=== PATIENT | male | born 1940 | race Hispanic/Latino ===

== ENCOUNTER → 2018-11-15 | Outpatient (CLI) | payer OTHER ==
[~2018-11-15] MED LIST: ALEN70TA10 PO; ASPI-555 PO; CLOP75TA14 PO; CYAN-52 PO; FENO160T16 PO; FINA5TAB41 PO; GENTLE SORB IRON PO; GLIP10TA9 PO; INSU100I21 SQ; LOSA100T58 PO; MACR100 PO; METF-446 PO; METO-408 PO; SIMV40TA5 PO; SULF-168 PO; TAMS0.4C32 PO; TYL3B PO
== END | disposition home or self-care (01) ==
LOC: SHCH 13:53
PROVIDERS: ATTEND Internal Medicine Cardiovascular Disease
DX: I08.0 Rheumatic disorders of both mitral and aortic valves (principal)
CPT/HCPCS: 93306

== ENCOUNTER → 2018-12-11 | Outpatient (CLI) | payer OTHER ==
[~2018-12-11] VITALS: Ht 180.3 cm; Wt 84.8 kg
[~2018-12-11] MED LIST changes: +REGADENOSON 0.4 MG/5 ML PF SYG IVP SCH; +SIMV-46 PO; -SIMV40TA5 PO
== END | disposition home or self-care (01) ==
LOC: SHCH 08:00
PROVIDERS: ATTEND Internal Medicine Cardiovascular Disease
DX: I25.10 Atherosclerotic heart disease of native coronary artery without angina pectoris (principal)
CPT/HCPCS: 78452; 93017; 96374; A9500 ×2; J2785

== ENCOUNTER → 2020-06-11 | Outpatient (CLI) | payer OTHER ==
[~2020-06-11] MED LIST changes: -ALEN70TA10 PO; +ALEN70TA80 PO; -ASPI-555 PO; +ASPI-556 PO; -REGADENOSON 0.4 MG/5 ML PF SYG IVP SCH
== END | disposition home or self-care (01) ==
LOC: SHCH 12:52
PROVIDERS: ATTEND Internal Medicine Cardiovascular Disease
DX: I65.23 Occlusion and stenosis of bilateral carotid arteries (principal); I25.10 Atherosclerotic heart disease of native coronary artery without angina pectoris
CPT/HCPCS: 93880

== ENCOUNTER → 2021-06-04 | Outpatient (CLI) | payer OTHER | END | disposition home or self-care (01) | LOC: SHCH 09:40 | PROVIDERS: ATTEND Internal Medicine Cardiovascular Disease | DX: I27.20 Pulmonary hypertension, unspecified (principal); R01.1 Cardiac murmur, unspecified | CPT/HCPCS: 93306 ==

== ENCOUNTER → 2021-07-12 | Outpatient (CLI) | payer OTHER ==
[~2021-07-12] MED LIST changes: +REGADENOSON 0.4 MG/5 ML PF SYG IVP SCH
== END | disposition home or self-care (01) ==
LOC: SHCH 07:44
PROVIDERS: ATTEND Internal Medicine Cardiovascular Disease
DX: I25.10 Atherosclerotic heart disease of native coronary artery without angina pectoris (principal); I10 Essential (primary) hypertension; Z95.1 Presence of aortocoronary bypass graft
CPT/HCPCS: 78452; 93017; 96374; A9500 ×2; J2785

== ENCOUNTER 2021-09-10 07:15 | Observation (INO) | payer OTHER ==
[2021-09-08 13:12] LABS: BASOPHILS % (AUTO) 0.9 % (0.0-5.0); HEMATOCRIT 32.2 % (42-54); LYMPHOCYTES % (AUTO) 21.7 % (21.0-51.0); MEAN CORPUSCULAR HEMOGLOBIN 27.3 pg (27.0-33.0); MEAN CORPUSCULAR HGB CONC 32.3 g/dL (32.0-36.0); MEAN CORPUSCULAR VOLUME 84.5 fL (79-99); MONOCYTES % (AUTO) 7.3 % (3.0-13.0); NEUTROPHILS % (AUTO) 67.8 % (40.0-77.0); PLATELET COUNT (AUTO) 244 K/uL (130-400); RED BLOOD CELL COUNT(AUTO) 3.81 MIL/uL (4.50-6.20); RED CELL DISTRIBUTION WIDTH 15.6 % (11.0-15.5); WHITE BLOOD COUNT (AUTO) 6.4 K/uL (4.8-10.8)
[2021-09-08 13:14] VITALS: BP 140/67
[2021-09-08 13:15] LABS: APPEARANCE,URINE CLEAR (CLEAR); BILIRUBIN,URINE SMALL (NEGATIVE); COLOR,URINE YELLOW (YELLOW); GLUCOSE, URINE (UA) NEGATIVE (NEGATIVE); KETONES,URINE 5 mg/dL (NEGATIVE); LEUKOCYTE ESTERASE ,URINE NEGATIVE (NEGATIVE); NITRATE,URINE NEGATIVE (NEGATIVE); OCCULT BLOOD,URINE NEGATIVE (NEGATIVE); PROTEIN,URINE NEGATIVE (NEGATIVE); UROBILINOGEN,URINE 0.2 mg/dL (0.2-1.0)
[2021-09-08 13:22] LABS: CREATININE 1.5 mg/dL (0.5-1.5); POTASSIUM 5.1 mmol/L (3.5-5.1)
[2021-09-10] VITALS (17 sets, daily range): BP systolic 105–181; BP diastolic 54–84
[~2021-09-10] VITALS: Ht 180.3 cm; Wt 83.9 kg
[~2021-09-10 07:15] MED LIST changes: +CALC-1209 PO; -GENTLE SORB IRON PO; -GLIP10TA9 PO; +HEPARIN 10,000 UNIT/10ML (1,000 UNIT/ML) VIAL ONE; +IOHEXOL 350 MG/ML 100ML INFUS..BTL IV ONE; +IOHEXOL-350 50ML VIAL IV ONE; +LIDOCAINE HCL 400MG/20ML VIAL ONE; +LINA5TAB PO; +LISI10TA24 PO; +LORA10TA7 PO; -LOSA100T58 PO; -MACR100 PO; +MEPERIDINE-PF 25 MG/ML SYG ONE; -METO-408 PO; +METO25TA6 PO; +MIDAZOLAM HCL 1 MG/ML 2ML VIAL ONE; +NITROGLYCERIN 50MG VIAL ONE; -REGADENOSON 0.4 MG/5 ML PF SYG IVP SCH; +ROSU40TA21 PO; -SIMV-46 PO; +SODIUM BICARB 50MEQ 50ML VIAL 50 ML ONE; -SULF-168 PO; -TYL3B PO; +iron PO
[2021-09-10] MEDS ORDERED: 0.9%NACL 1000ML 1,000 ML IV ONE (08:56)
[2021-09-10 11:07] LABS: INR 1.07 (0.85-1.15); PROTHROMBIN TIME 11.6 SEC (9.6-11.6)
[2021-09-10] MEDS ORDERED: MIDAZOLAM HCL 1 MG/ML 2ML VIAL ONE ×2 (11:07→11:30)
[2021-09-10] MEDS ORDERED: MEPERIDINE-PF 25 MG/ML SYG ONE (11:07)
[2021-09-10] MEDS ORDERED: MEPERIDINE-PF 50 MG/ML SYG ONE (11:30)
[2021-09-10] MEDS ORDERED: NITROGLYCERIN 4.1 GM SPRAY TL ONE (12:15)
[2021-09-10] MEDS ORDERED: DEXTROSE 50%-WATER 50 ML DISP.SYRIN IV PRN (12:30)
[2021-09-10] MEDS ORDERED: 0.9%NACL 1000ML 1,000 ML IV SCH (12:30)
[2021-09-10] MEDS ORDERED: GLUCAGON 1MG KIT 1 MG ML IM PRN (12:30)
[2021-09-10] MEDS ORDERED: MORPHINE 2 MG SYG IVP PRN (18:30)
[2021-09-10] MEDS ORDERED: CLONIDINE HCL 0.1 MG TABLET PO SCH (20:00)
[2021-09-10] MEDS: INSULIN HUMULIN R 100 UNIT/ML 3ML SQ SCH ×2 (20:21→20:23)
[2021-09-10] MEDS: CA 600MG+VIT D 400 UNIT TAB 1 TAB TABLET PO SCH ×2 (21:00→21:23)
[2021-09-10] MEDS ORDERED: ASPIRIN 81 MG EC TAB PO SCH (21:00)
[2021-09-10] MEDS ORDERED: ATORVASTATIN 40 MG TABLET PO SCH (21:00)
[2021-09-10] MEDS ORDERED: FAMOTIDINE 20MG TAB PO SCH (21:00)
[2021-09-10] MEDS: TAMSULOSIN HCL 0.4 MG CAP.ER.24H PO SCH (21:23)
[2021-09-10] MEDS: METOPROLOL TARTRATE 25 MG TAB PO SCH (21:23)
[2021-09-10] MEDS: NITROGLYCERIN 1GM OINT 1 INCH/1GM TD SCH (21:24)
[2021-09-11 03:58] VITALS: BP 120/65
[2021-09-11] MEDS: NITROGLYCERIN 1GM OINT 1 INCH/1GM TD SCH ×2 (04:52→11:39)
[2021-09-11] MEDS: INSULIN HUMULIN R 100 UNIT/ML 3ML SQ SCH ×3 (06:59→16:30)
[2021-09-11 08:00] VITALS: BP 147/76
[2021-09-11 08:31] LABS: HEMATOCRIT 32.4 % (42-54); MEAN CORPUSCULAR HEMOGLOBIN 27.4 pg (27.0-33.0); MEAN CORPUSCULAR HGB CONC 32.4 g/dL (32.0-36.0); MEAN CORPUSCULAR VOLUME 84.6 fL (79-99); RED BLOOD CELL COUNT(AUTO) 3.83 MIL/uL (4.50-6.20); RED CELL DISTRIBUTION WIDTH 15.8 % (11.0-15.5); WHITE BLOOD COUNT (AUTO) 6.9 K/uL (4.8-10.8)
[2021-09-11 08:48] LABS: CREATININE 1.3 mg/dL (0.5-1.5); POTASSIUM 4.9 mmol/L (3.5-5.1)
[2021-09-11] MEDS: CA 600MG+VIT D 400 UNIT TAB 1 TAB TABLET PO SCH (08:56)
[2021-09-11] MEDS: TAMSULOSIN HCL 0.4 MG CAP.ER.24H PO SCH (08:56)
[2021-09-11] MEDS: METOPROLOL TARTRATE 25 MG TAB PO SCH (08:57)
[2021-09-11] MEDS ORDERED: CLOPIDOGREL 75MG TAB PO SCH (09:00)
[2021-09-11] MEDS ORDERED: FINASTERIDE 5 MG TABLET PO SCH (09:00)
[2021-09-11] MEDS ORDERED: LISINOPRIL 10 MG TABLET PO SCH (09:00)
[2021-09-11] MEDS ORDERED: **HM**(Fenofibrate 160 MG PO SCH (09:00)
[2021-09-11] MEDS ORDERED: CYANOCOBALAMIN (VITAMIN B-12) 1,000 MCG TABLET PO SCH (09:00)
[2021-09-11 12:00] VITALS: BP 123/63
[2021-09-11 16:00] VITALS: BP 131/68
== END 2021-09-11 17:43 | disposition home or self-care (01) ==
LOC: DAH 07:15 → DAHIP 07:16 → 2BH 18:55 → 2AH 22:22
PROVIDERS: ADMIT Internal Medicine; ATTEND Internal Medicine
DX: I25.119 Atherosclerotic heart disease of native coronary artery with unspecified angina pectoris (principal); E11.9 Type 2 diabetes mellitus without complications; E78.5 Hyperlipidemia, unspecified; I10 Essential (primary) hypertension; K21.9 Gastro-esophageal reflux disease without esophagitis; M19.90 Unspecified osteoarthritis, unspecified site; I35.8 Other nonrheumatic aortic valve disorders; Z79.82 Long term (current) use of aspirin; Z79.899 Other long term (current) drug therapy; Z79.02 Long term (current) use of antithrombotics/antiplatelets; Z95.1 Presence of aortocoronary bypass graft
CPT/HCPCS: 80048 ×2; 85025; 85730 ×2; 81003; 36415 ×3; 71045; 93005 ×2; 93459; 96372 ×2; 96360; 96361; 85610; 82948 ×6; 85027; C1769 ×2; C1887 ×2; C1894; C1760; C1874 ×2; Q9965; G0378 ×24; J3490 ×3; J7030 ×2; J1644 ×2; J2250 ×2; J2175 ×2; Q9967 ×2; J1815 ×2; A4215; A4223 ×3; A4222; A4221; A4663; A4216; A4606; C9600; C9604; 93458; 99156; 99157

== ENCOUNTER 2021-09-16 11:00 | Inpatient (IN) | payer OTHER ==
[~2021-09-16] VITALS: Ht 175.3 cm; Wt 79.5 kg
[2021-09-16] VITALS (28 sets, daily range): BP systolic 121–143; BP diastolic 57–75
[~2021-09-16 11:00] MED LIST changes: -HEPARIN 10,000 UNIT/10ML (1,000 UNIT/ML) VIAL ONE; -IOHEXOL 350 MG/ML 100ML INFUS..BTL IV ONE; -IOHEXOL-350 50ML VIAL IV ONE; -LIDOCAINE HCL 400MG/20ML VIAL ONE; -MEPERIDINE-PF 25 MG/ML SYG ONE; -MIDAZOLAM HCL 1 MG/ML 2ML VIAL ONE; -NITROGLYCERIN 50MG VIAL ONE; -SODIUM BICARB 50MEQ 50ML VIAL 50 ML ONE
[2021-09-16] MEDS ORDERED: NITROGLYCERIN 50MG VIAL ONE (11:03)
[2021-09-16] MEDS ORDERED: HEPARIN 10,000 UNIT/10ML (1,000 UNIT/ML) VIAL ONE (11:03)
[2021-09-16] MEDS ORDERED: FENTANYL CITRATE PF 50 MCG/1 ML 2ML VIAL ONE (11:04)
[2021-09-16] MEDS ORDERED: LIDOCAINE HCL 1% 10 ML VIAL ONE (11:04)
[2021-09-16] MEDS ORDERED: MIDAZOLAM HCL 1 MG/ML 2ML VIAL ONE (11:04)
[2021-09-16] MEDS ORDERED: IOHEXOL 350 MG/ML 100ML INFUS..BTL IV ONE (11:04)
[2021-09-16] MEDS ORDERED: TICAGRELOR 90 MG TABLET ONE (11:19)
[2021-09-16 11:22] LABS: BASOPHILS % (AUTO) 0.1 % (0.0-5.0); MEAN CORPUSCULAR HEMOGLOBIN 27.9 pg (27.0-33.0); MEAN CORPUSCULAR HGB CONC 33.4 g/dL (32.0-36.0); MEAN CORPUSCULAR VOLUME 83.3 fL (79-99); MONOCYTES % (AUTO) 9.6 % (3.0-13.0); NEUTROPHILS % (AUTO) 80.9 % (40.0-77.0); PLATELET COUNT (AUTO) 251 K/uL (130-400); RED BLOOD CELL COUNT(AUTO) 3.84 MIL/uL (4.50-6.20); RED CELL DISTRIBUTION WIDTH 15.5 % (11.0-15.5); WHITE BLOOD COUNT (AUTO) 10.5 K/uL (4.8-10.8)
[2021-09-16 11:32] LABS: CREATININE 1.5 mg/dL (0.5-1.5); POTASSIUM 4.6 mmol/L (3.5-5.1)
[2021-09-16 11:42] LABS: INR 1.03 (0.85-1.15); PROTHROMBIN TIME 11.2 SEC (9.6-11.6)
[2021-09-16 11:46] LABS: ALBUMIN 3.4 g/dL (3.5-5.0); TOTAL PROTEIN, SERUM 7.6 g/dL (6.0-8.3)
[2021-09-16 11:50] LABS: B-TYPE NATRIURETIC PEPTIDE 475 pg/mL (0-100)
[2021-09-16] MEDS ORDERED: EPTIFIBATIDE 2 MG/ML 10 ML VIAL IVP ONE (11:51)
[2021-09-16] MEDS ORDERED: EPTIFIBATIDE 75MG/100ML BOTTLE 100 ML IV ONE (11:51)
[2021-09-16] MEDS ORDERED: CLONIDINE HCL 0.1 MG TABLET PO PRN (12:00)
[2021-09-16] MEDS ORDERED: MORPHINE 2 MG SYG IVP PRN (12:00)
[2021-09-16] MEDS ORDERED: ACETAMINOPHEN 650 MG SUPPOSITORY RC PRN (12:00)
[2021-09-16] MEDS ORDERED: ONDANSETRON 4MG INJ IVP PRN (12:00)
[2021-09-16] MEDS ORDERED: HYDRALAZINE 20MG/ML VIAL IV PRN (12:00)
[2021-09-16] MEDS ORDERED: LACTULOSE 20 GM/30 ML UDCUP PO PRN (12:00)
[2021-09-16] MEDS ORDERED: NITROGLYCERIN 50MG/D5W 250ML 250 BOT IV PRN (12:00)
[2021-09-16] MEDS ORDERED: TEMAZEPAM 15 MG CAPSULE PO PRN (12:00)
[2021-09-16] MEDS ORDERED: GLUCAGON 1MG KIT 1 MG ML IM PRN (13:00)
[2021-09-16] MEDS ORDERED: DEXTROSE 50%-WATER 50 ML DISP.SYRIN IV PRN (13:00)
[2021-09-16] MEDS: 0.9%NACL 1000ML 1,000 ML IV SCH (13:30)
[2021-09-16] MEDS ORDERED: NITR0.4T SL (14:13)
[2021-09-16] MEDS: INSULIN HUMULIN R 100 UNIT/ML 3ML SQ SCH ×2 (15:55→21:23)
[2021-09-16] MEDS: EPTIFIBATIDE 75MG/100ML BOTTLE 100 ML IV SCH (18:07)
[2021-09-16] MEDS: TICAGRELOR 90 MG TABLET PO SCH (21:21)
[2021-09-17] VITALS (24 sets, daily range): BP systolic 112–137; BP diastolic 54–83
[2021-09-17] MEDS: EPTIFIBATIDE 75MG/100ML BOTTLE 100 ML IV SCH (01:53)
[2021-09-17 03:46] LABS: HEMATOCRIT 28.9 % (42-54); MEAN CORPUSCULAR HEMOGLOBIN 27.2 pg (27.0-33.0); MEAN CORPUSCULAR HGB CONC 33.2 g/dL (32.0-36.0); MEAN CORPUSCULAR VOLUME 81.9 fL (79-99); RED BLOOD CELL COUNT(AUTO) 3.53 MIL/uL (4.50-6.20); RED CELL DISTRIBUTION WIDTH 15.6 % (11.0-15.5); WHITE BLOOD COUNT (AUTO) 10.2 K/uL (4.8-10.8)
[2021-09-17 04:03] LABS: CREATININE 1.2 mg/dL (0.5-1.5); MAGNESIUM 1.3 mg/dL (1.80-2.40); PHOSPHORUS 3.6 mg/dL (2.5-4.9); POTASSIUM 3.7 mmol/L (3.5-5.1)
[2021-09-17] MEDS: 0.9%NACL 1000ML 1,000 ML IV SCH ×2 (05:25→16:34)
[2021-09-17] MEDS: ACETAMINOPHEN 325 MG TAB PO PRN (05:46)
[2021-09-17] MEDS ORDERED: POTASSIUM CHLORIDE 10% ELIXIR 20 MEQ/15 ML UDCUP PO PRN (06:30)
[2021-09-17] MEDS ORDERED: MAGNESIUM 2GM PREMIX 50ML 50 ML IV PRN (07:30)
[2021-09-17] MEDS: INSULIN HUMULIN R 100 UNIT/ML 3ML SQ SCH ×4 (07:30→20:09)
[2021-09-17] MEDS: TICAGRELOR 90 MG TABLET PO SCH ×2 (08:06→20:08)
[2021-09-17] MEDS: ASPIRIN 81MG CHEW TAB PO SCH (08:06)
[2021-09-17] MEDS: KCL 20 MEQ ERTAB PO PRN ×2 (08:07→10:07)
[2021-09-17] MEDS: ENOXAPARIN SODIUM 40 MG/0.4 ML SYRINGE SQ SCH (08:07)
[2021-09-17] MEDS: METOPROLOL TARTRATE 25 MG TAB PO SCH (20:08)
[2021-09-17] MEDS ORDERED: ROSUVASTATIN 40MG PO SCH (21:00)
[2021-09-18 03:38] VITALS: BP 141/73
[2021-09-18] MEDS: 0.9%NACL 1000ML 1,000 ML IV SCH (03:42)
[2021-09-18] MEDS: ACETAMINOPHEN 325 MG TAB PO PRN (03:42)
[2021-09-18 04:09] LABS: MEAN CORPUSCULAR HGB CONC 33.9 g/dL (32.0-36.0); MEAN CORPUSCULAR VOLUME 82.6 fL (79-99); RED BLOOD CELL COUNT(AUTO) 3.39 MIL/uL (4.50-6.20); RED CELL DISTRIBUTION WIDTH 15.4 % (11.0-15.5); WHITE BLOOD COUNT (AUTO) 9.1 K/uL (4.8-10.8)
[2021-09-18 04:17] LABS: CREATININE 1.2 mg/dL (0.5-1.5); POTASSIUM 4.2 mmol/L (3.5-5.1)
[2021-09-18] MEDS: INSULIN HUMULIN R 100 UNIT/ML 3ML SQ SCH ×2 (06:21→12:14)
[2021-09-18] MEDS ORDERED: TICA90TA PO (07:52)
[2021-09-18] MEDS: METOPROLOL TARTRATE 25 MG TAB PO SCH (08:14)
[2021-09-18] MEDS: ASPIRIN 81MG CHEW TAB PO SCH (08:14)
[2021-09-18] MEDS: ENOXAPARIN SODIUM 40 MG/0.4 ML SYRINGE SQ SCH (08:14)
[2021-09-18] MEDS: TICAGRELOR 90 MG TABLET PO SCH (08:14)
[2021-09-18 08:28] VITALS: BP 135/77
[2021-09-18 12:35] VITALS: BP 114/51
== END 2021-09-18 12:55 | disposition home or self-care (01) | DRG 246 ==
LOC: EDH 11:00 → CLH 11:01 → DAHIP 11:01 → EDHIP 11:45 → 2BH 12:58 → 2DH 09-17 12:46
PROVIDERS: ADMIT Internal Medicine Critical Care Medicine; ATTEND Internal Medicine Critical Care Medicine
PROC: 4A023N7 Measurement of Cardiac Sampling and Pressure, Left Heart, Percutaneous Approach (ICD-10-PCS; principal; 2021-09-16)
PROC: 027034Z Dilation of Coronary Artery, One Artery with Drug-eluting Intraluminal Device, Percutaneous Approach (ICD-10-PCS; 2021-09-16)
PROC: 02C03ZZ Extirpation of Matter from Coronary Artery, One Artery, Percutaneous Approach (ICD-10-PCS; 2021-09-16)
PROC: 02703ZZ Dilation of Coronary Artery, One Artery, Percutaneous Approach (ICD-10-PCS; 2021-09-16)
PROC: B2111ZZ Fluoroscopy of Multiple Coronary Arteries using Low Osmolar Contrast (ICD-10-PCS; 2021-09-16)
PROC: 3E073PZ Introduction of Platelet Inhibitor into Coronary Artery, Percutaneous Approach (ICD-10-PCS; 2021-09-16)
DX: T82.855A Stenosis of coronary artery stent, initial encounter (principal); I21.3 ST elevation (STEMI) myocardial infarction of unspecified site; E87.1 Hypo-osmolality and hyponatremia; Z20.822 Contact with and (suspected) exposure to COVID-19; I25.10 Atherosclerotic heart disease of native coronary artery without angina pectoris; E78.5 Hyperlipidemia, unspecified; E11.9 Type 2 diabetes mellitus without complications; Y83.8 Other surgical procedures as the cause of abnormal reaction of the patient, or of later complication, without mention of misadventure at the time of the procedure; I10 Essential (primary) hypertension; D64.9 Anemia, unspecified; N40.0 Benign prostatic hyperplasia without lower urinary tract symptoms; Z95.1 Presence of aortocoronary bypass graft; I25.2 Old myocardial infarction; Z95.5 Presence of coronary angioplasty implant and graft
CPT/HCPCS: 36415; 71045; 80048; 80053; 82550; 82948; 83735; 83874; 83880; 84100; 84484; 85025; 85027; 85610; 87635; 93005; 93454; 99156; 99157; C1887; C1894; C9606; G0378; J1327; J1644; J1650; J1815; J2250; J3010; J3475; J3490; J7030; Q9967

== ENCOUNTER → 2021-10-28 | Outpatient (CLI) | payer OTHER ==
[~2021-10-28] MED LIST changes: -CALC-1209 PO; -CLOP75TA14 PO; +IOHEXOL-350 75 ML VIAL IV ONE; +NITR0.4T SL; +TICA90TA PO
== END | disposition home or self-care (01) ==
LOC: RAH 10:22
PROVIDERS: ATTEND Family Medicine
DX: R55 Syncope and collapse (principal)
CPT/HCPCS: 70470; Q9967

== ENCOUNTER → 2022-02-08 | Outpatient (CLI) | payer OTHER ==
[~2022-02-08] MED LIST changes: -IOHEXOL-350 75 ML VIAL IV ONE
[2022-02-08 13:16] LABS: CHOLESTEROL 94 mg/dL (<200); HDL CHOLESTEROL 34 mg/dL (29-71); LDL DIRECT 47 mg/dL (0-99); TRIGLYCERIDES 144 mg/dL (30-200)
== END | disposition home or self-care (01) ==
LOC: LAB 08:49
PROVIDERS: ATTEND Physician Assistant
DX: E78.5 Hyperlipidemia, unspecified (principal)
CPT/HCPCS: 36415; 80061

== ENCOUNTER → 2022-05-03 | Outpatient (CLI) | payer OTHER ==
[~2022-05-03] MED LIST changes: -INSU100I21 SQ; +INSU100I22 SQ
[2022-05-03 14:19] LABS: CREATININE 1.7 mg/dL (0.5-1.5); MAGNESIUM 1.6 mg/dL (1.80-2.40); POTASSIUM 4.1 mmol/L (3.5-5.1)
== END | disposition home or self-care (01) ==
LOC: LAB 11:43
PROVIDERS: ATTEND Physician Assistant
DX: I25.10 Atherosclerotic heart disease of native coronary artery without angina pectoris (principal); E78.5 Hyperlipidemia, unspecified
CPT/HCPCS: 36415; 80048; 83735; 83880

== ENCOUNTER → 2022-06-03 | Outpatient (CLI) | payer OTHER ==
[~2022-06-03] MED LIST changes: +DAPA5TAB PO; -FENO160T16 PO; +FURO20TA4 PO; -LISI10TA24 PO; +LOSA25TA2 PO; -METO25TA6 PO; +METO50TA9 PO; +RANO500T2 PO
[2022-06-03 15:47] LABS: ALBUMIN 3.5 g/dL (3.5-5.0); CREATININE 1.4 mg/dL (0.5-1.5); MAGNESIUM 1.7 mg/dL (1.80-2.40); POTASSIUM 4.9 mmol/L (3.5-5.1); TOTAL PROTEIN, SERUM 7.4 g/dL (6.0-8.3)
== END | disposition home or self-care (01) ==
LOC: LAB 11:56
PROVIDERS: ATTEND Physician Assistant
DX: I10 Essential (primary) hypertension (principal); E78.5 Hyperlipidemia, unspecified
CPT/HCPCS: 36415; 80053; 83735; 83880

== ENCOUNTER 2023-06-07 06:29 | Day surgery (SDC) | payer OTHER ==
[~2023-06-07] VITALS: Ht 154.9 cm; Wt 69.4 kg
[2023-06-07] VITALS (10 sets, daily range): BP systolic 125–142; BP diastolic 54–70; PULSE 60–80; RESP 15–17
[~2023-06-07 06:29] MED LIST changes: -CYAN-52 PO; +CYAN100010 PO; -FINA5TAB41 PO; -FURO20TA4 PO; +IRON18TA PO; -LINA5TAB PO; +LISI2.5T13 PO; -LORA10TA7 PO; -LOSA25TA2 PO; +METO-408 PO; -METO50TA9 PO; -NITR0.4T SL; +PANT40TA54 PO; -iron PO
[2023-06-07] MEDS ORDERED: TAMS-1 PO (08:13)
[2023-06-07] MEDS ORDERED: RANEXA PO (08:13)
[2023-06-07] MEDS: 0.9%NACL 1000ML 1,000 ML IV ONE (08:15)
[2023-06-07] MEDS ORDERED: [UNRECOGNIZED DRUG - OTHER] PO (08:17)
[2023-06-07] MEDS ORDERED: [UNRECOGNIZED DRUG - OTHER] NASAL (08:17)
[2023-06-07] MEDS ORDERED: EMPA10TA PO (08:17)
[2023-06-07] MEDS ORDERED: PLEC3TAB2 PO (08:17)
[2023-06-07] MEDS ORDERED: PROPOFOL 10 MG/ML 20ML VIAL IV ONE ×2 (09:22→09:58)
== END 2023-06-07 11:05 | disposition home or self-care (01) ==
LOC: ENDO 06:29 → DAH 06:29 → ENDO 11:05
PROVIDERS: ATTEND Internal Medicine Gastroenterology
DX: D50.0 Iron deficiency anemia secondary to blood loss (chronic) (principal); R13.10 Dysphagia, unspecified; K59.04 Chronic idiopathic constipation; K63.5 Polyp of colon; K29.70 Gastritis, unspecified, without bleeding; K31.A0 Gastric intestinal metaplasia, unspecified; K31.A15 Gastric intestinal metaplasia without dysplasia, involving multiple sites; K57.30 Diverticulosis of large intestine without perforation or abscess without bleeding; I25.10 Atherosclerotic heart disease of native coronary artery without angina pectoris; E78.5 Hyperlipidemia, unspecified; I10 Essential (primary) hypertension; E11.69 Type 2 diabetes mellitus with other specified complication; K21.9 Gastro-esophageal reflux disease without esophagitis; Z86.010 Personal history of colon polyps; Z82.3 Family history of stroke; Z83.3 Family history of diabetes mellitus; Z80.9 Family history of malignant neoplasm, unspecified; Z79.82 Long term (current) use of aspirin; Z79.4 Long term (current) use of insulin; Z79.84 Long term (current) use of oral hypoglycemic drugs; Z79.899 Other long term (current) drug therapy; Z95.5 Presence of coronary angioplasty implant and graft
CPT/HCPCS: 82948 ×2; 43239; 45385; J7030; J2704 ×2; A4620; A4215; A4223; A7002; A4222; A4221; A4663; A4606; J3490

== ENCOUNTER 2023-10-13 08:37 | Day surgery (SDC) | payer OTHER ==
[2023-10-11 10:06] LABS: BASOPHILS # (AUTO) 0.03 K/uL (0.00-0.20); BASOPHILS % (AUTO) 0.6 % (0.0-5.0); EOSINOPHILS # (AUTO) 0.19 K/uL (0.00-0.70); EOSINOPHILS % (AUTO) 3.7 % (0.0-8.0); HEMATOCRIT 30.8 % (42-54); IMMATURE GRANULOCYTE ABSOLUTE 0.02 K/uL (0-1); LYMPHOCYTES # (AUTO) 1.3 K/uL (1.0-4.8); LYMPHOCYTES % (AUTO) 24.8 % (21.0-51.0); MEAN CORPUSCULAR HEMOGLOBIN 27.4 pg (27.0-33.0); MEAN CORPUSCULAR HGB CONC 31.2 g/dL (32.0-36.0); MONOCYTES # (AUTO) 0.6 K/uL (0.1-1.0); MONOCYTES % (AUTO) 11.5 % (3.0-13.0); NEUTROPHILS # (AUTO) 3.1 K/uL (1.8-7.7); PLATELET COUNT (AUTO) 235 K/uL (130-400); RED CELL DISTRIBUTION WIDTH 17.1 % (11.0-15.5); WHITE BLOOD COUNT (AUTO) 5.2 K/uL (4.8-10.8)
[2023-10-11 10:15] LABS: CREATININE 1.4 mg/dL (0.5-1.3); POTASSIUM 4.9 mmol/L (3.5-5.1)
[2023-10-11 10:22] LABS: INR 1.01 (0.85-1.15); PROTHROMBIN TIME 10.9 SEC (9.6-11.6)
[2023-10-11 10:25] VITALS: BP 96/49; PULSE 74; RESP 18; TEMP 97.8
[2023-10-11 10:36] LABS: B-TYPE NATRIURETIC PEPTIDE 159 pg/mL (0-100)
[2023-10-11 12:06] LABS: ADD UA MICROSCOPIC YES; APPEARANCE,URINE CLEAR (CLEAR); BILIRUBIN,URINE NEGATIVE (NEGATIVE); COLOR,URINE YELLOW (YELLOW); GLUCOSE, URINE (UA) >=1000 mg/dL (NEGATIVE); KETONES,URINE NEGATIVE (NEGATIVE); LEUKOCYTE ESTERASE ,URINE 250 Leu/uL (NEGATIVE); NITRATE,URINE NEGATIVE (NEGATIVE); OCCULT BLOOD,URINE NEGATIVE (NEGATIVE); PROTEIN,URINE NEGATIVE (NEGATIVE); UROBILINOGEN,URINE 0.2 mg/dL (0.2-1.0)
[2023-10-11 12:08] LABS: BACTERIA,URINE FEW /HPF (None Seen); MUCUS,URINE RARE LPF (None Seen); SQUAMOUS EPITHELIAL CELL,UR RARE /HPF (0-2); WBC CLUMP RARE /HPF (0-1); WBC,URINE 26-50 /HPF (0-1)
[~2023-10-13] VITALS: Ht 177.8 cm; Wt 72.0 kg
[2023-10-13] VITALS (11 sets, daily range): BP systolic 99–136; BP diastolic 49–60; PULSE 62–75; RESP 12–18; TEMP 97.9–98.1
[~2023-10-13 08:37] MED LIST changes: +ALPHA-LIPOIC ACID PO; +CLOP-31 PO; -DAPA5TAB PO; +EMPA10TA PO; +FERR-82 PO; -INSU100I22 SQ; +INSU100V12 SQ; -IRON18TA PO; -LISI2.5T13 PO; -METO-408 PO; +MIDO5TAB4 PO; +NITR0.4T50 SL; -ROSU40TA21 PO; +TAMS-1 PO; -TAMS0.4C32 PO; -TICA90TA PO
[2023-10-13] MEDS ORDERED: 0.9%NACL 1000ML 1,000 ML IV SCH ×2 (09:00→11:30)
[2023-10-13] MEDS ORDERED: HEParin 10,000 UNIT/10ML (1,000 UNIT/ML) VIAL ONE (11:25)
[2023-10-13] MEDS ORDERED: SODIUM BICARB 50MEQ 50ML VIAL 50 ML ONE (11:25)
[2023-10-13] MEDS ORDERED: LIDOCAINE HCL 400MG/20ML VIAL ONE (11:25)
[2023-10-13] MEDS ORDERED: IOHEXOL 350 MG/ML 100ML INFUS..BTL IV ONE (11:25)
[2023-10-13] MEDS ORDERED: NITROGLYCERIN 50MG VIAL ONE (11:26)
[2023-10-13] MEDS ORDERED: HEParin-NS 1,000 UNIT/500 ML 1,000 ML IV ONE (11:26)
[2023-10-13] MEDS ORDERED: levoFLOXacin 500 MG/D5W 100 ML 100 ML ONE (11:33)
[2023-10-13] MEDS ORDERED: MEPERIDINE-PF 25 MG/ML SYG ONE (11:39)
[2023-10-13] MEDS ORDERED: MIDAZOLAM HCL 1 MG/ML 2ML VIAL ONE (11:39)
[2023-10-13] MEDS ORDERED: DEXTROSE 50%-WATER 50 ML DISP.SYRIN IV PRN (12:30)
[2023-10-13] MEDS ORDERED: GLUCAGON 1MG KIT 1 MG ML IM PRN (12:30)
[2023-10-13] MEDS: 0.9%NACL 1000ML 1,000 ML IV SCH (12:30)
[2023-10-13] MEDS ORDERED: INSULIN humuLIN R 100 UNIT/ML 3ML SQ SCH (16:30)
== END 2023-10-13 19:00 | disposition home or self-care (01) ==
LOC: DAH 08:37
PROVIDERS: ATTEND Internal Medicine Cardiovascular Disease
DX: I25.118 Atherosclerotic heart disease of native coronary artery with other forms of angina pectoris (principal); I10 Essential (primary) hypertension; E78.5 Hyperlipidemia, unspecified; E11.9 Type 2 diabetes mellitus without complications; I25.2 Old myocardial infarction; Z95.5 Presence of coronary angioplasty implant and graft; Z79.01 Long term (current) use of anticoagulants; Z95.1 Presence of aortocoronary bypass graft; Z79.82 Long term (current) use of aspirin; Z79.4 Long term (current) use of insulin; Z79.899 Other long term (current) drug therapy
CPT/HCPCS: 80048; 83880; 85025; 85610; 85730; 87086 ×2; 81001; 36415; 71045; 93005; 93459; 87186; 82948; C1894 ×2; C1760; J3490 ×3; J1956; J7030; J1644 ×2; J2250; J2175; Q9967; A4215; A4222; A4221; A4663; A4216; A4606; Q9965; A4223 ×3; 99156; 99157